=== PATIENT | female | born 1995 | race Hispanic/Latino ===

== ENCOUNTER 2021-07-24 08:36 | Outpatient (CLI) | payer OTHER | END 2021-07-24 08:37 | disposition home or self-care (01) | LOC: BICCT 08:36 | PROVIDERS: ATTEND Family Medicine | DX: R10.9 Unspecified abdominal pain (principal); K42.9 Umbilical hernia without obstruction or gangrene; K37 Unspecified appendicitis; K63.89 Other specified diseases of intestine | CPT/HCPCS: 74177 ==